=== PATIENT | female | born 1960 | race Hispanic/Latino ===

== ENCOUNTER 2020-10-05 11:18 | Outpatient (CLI) | payer OTHER ==
--- NOTE | 2020-10-05 15:46 | RAD ---
LEFT TOES 10/05/20 A fracture is seen through the proximal phalanx of the fourth toe that appears recent. There is later al angulation of the distal fragment. Additionally, the middle phalanx of the third toe is subluxed l aterally at the PIP joint. No fracture was seen here. An old well healed fracture of the distal fifth metatarsal was seen. IMPRESSION: 1. Recent fracture of the proximal phalanx of the fourth toe. 2. Lateral subluxation of the third toe at the PIP joint. POS: HOME
--- NOTE | 2020-10-05 16:07 | RAD ---
LEFT FOOT THREE VIEWS: 10/05/20 A fracture is present through the proximal phalanx of the fourth toe with slight lateral angulation o f the distal fragment. This appears recent. Additionally, there is a lateral subluxation of the third toe at the PIP joint. An old well healed fracture of the distal fifth metatarsal is present. A moder ate sized calcaneal spur was seen. IMPRESSION: Acute findings include fracture of the proximal phalanx of the fourth toe and lateral subluxation or dislocation of the third toe at the PIP joint. POS: HOME
== END 2020-10-05 11:19 | disposition home or self-care (01) ==
LOC: BURRAD 11:18
PROVIDERS: ATTEND Physician Assistant
DX: S99.922A Unspecified injury of left foot, initial encounter (principal); S92.512A Displaced fracture of proximal phalanx of left lesser toe(s), initial encounter for closed fracture; S93.115A Dislocation of interphalangeal joint of left lesser toe(s), initial encounter